=== PATIENT | female | born 1945 | race Caucasian/White ===

== ENCOUNTER 2023-12-28 22:53 | Inpatient (IN) | payer OTHER, SELFPAY ==
[2023-12-28 16:45] VITALS: BP 156/96
[2023-12-28 17:37] VITALS: BP 153/84
[2023-12-28 18:00] VITALS: BP 100/65
[2023-12-28 18:02] LABS: % Basophils 0.5 % (0-2); % Eosinophils 2.7 % (0-6); % Immature Granulocytes 0.4 % (0-0.5); % Lymphocytes 15.3 % (20.5-51.1); % Monocytes 10.4 % (1.7-9.3); % Neutrophils 70.7 % (42.2-75.2); Absolute Basophils 0.1 10^3/uL (0-0.2); Absolute Eosinophils 0.3 10^3/uL (0-0.7); Absolute Lymphocytes 1.5 10^3/uL (1.2-3.4); Hematocrit 43.6 % (37.0-47.0); Hemoglobin 15.4 g/dL (12.0-16.0); Mean Corp Hgb Conc. 35.3 g/dL (33.0-37.0); Mean Corpuscular Hgb 33.6 pg (27.0-31.0); Mean Platelet Volume 9.4 fL (7.4-10.4); Nucleated Red Blood Cells % 0 %; Platelet Count 236 10^3/uL (130-400); Red Blood Cell Count 4.59 10^6/uL (4.20-5.40); White Blood Cell Count 9.8 10^3/uL (4.8-10.8)
[2023-12-28 18:04] LABS: ALT (SGPT) 24 U/L (0-35); AST (SGOT) 33 U/L (14-36); Albumin 4.4 g/dl (3.5-5.0); Alkaline Phosphatase 71 U/L (38-126); Blood Urea Nitrogen 17 mg/dl (7-17); Calcium 9.3 mg/dl (8.4-10.2); Carbon Dioxide 29 mmol/L (22-30); Chloride 98 mmol/L (98-107); Glucose 101 mg/dl (70-99); Potassium 3.5 mmol/L (3.5-5.1); Sodium 139 mmol/L (135-145); Total Bilirubin 1.5 mg/dl (0.2-1.3); Total Protein 7.3 g/dl (6.3-8.2); eGFR > 60.00
[2023-12-28 18:07] VITALS: BMI 27.8
[2023-12-28 18:13] LABS: Troponin I < 0.012 ng/ml
--- NOTE | 2023-12-28 18:20 | ED.GENMED ---
History of Present Illness
General
Chief Complaint: Chest Pain
Time Seen by Provider: 12/28/23 17:36
History of Present Illness
History of Present Illness:
78-year-old female presents the emergency department for evaluation of epigastric/lower chest pain that began this morning. Pain was present when she woke up from sleep. Is now radiating to the thoracic back. She notes that it is mildly pleuritic
but there is no worsening with exertion or movement. No fever, chills, sweats, nausea, or vomiting. Denies history of alcohol or NSAID use. Prior history of cholecystectomy
Review of Systems
Review of Systems
Allergies reviewed?: Yes
All Other Systems: ROS reviewed and negative except as documented in HPI and ROS
Phy Exam
Physical Exam
Physical Exam:
GEN: Well appearing, NAD, WDWN
Eyes: PERRLA, EOMs intact, no scleral icterus
HENT: NCAT, oral mucosa moist, no JVD, no cervical adenopathy.
Lungs: CTAB, no wheezes, rales, rhonchi, normal chest wall excursion
Cardiac: RRR, no M/R/G, no peripheral edema. Radial pulses 2+ bilat
Abdomen: Soft, diffuse epigastric and upper abdominal tenderness with no focality, negative Cruz sign
Neuro: AO x 3
MSK: No gross deformity or ecchymosis. No edema. No digital clubbing
Skin: No rashes, petechiae. Normal color, no pallor or jaundice.
Psych: Calm, cooperative, proper hygiene
Scores
Heart Score for Chest Pain Patients
STEMI patient?: Not applicable
Course
Orders/Labs/Results
Orders:
Orders
12/28/23 16:41
Electrocardiogram (*1) Urgent
Reason for Study: Chest Pain
12/28/23 17:39
Electrocardiogram (*1) Urgent
Reason for Study: Chest Pain
Cardiac Monitoring- Treatment ONCE
EKG- Treatment ONCE
IV Insert/Care/Rem.- Treatment PRN
O2 Therapy [RESP] Urgent
Titrate/Wean O2 to maintain O2 sat greater than (%): 90
Special Instructions: Maintain sats >/=90%
Pulse Ox/spot Check [RESP] Urgent
Quantity: 1
Special Instructions: ON ROOM AIR
12/28/23 17:40
Complete Blood Count/With Diff Urgent
Comprehensive Metabolic Panel Urgent
Lipase Urgent
Comment: ADD ON
Troponin I Urgent
12/28/23 18:25
Add On- LAB Urgent
Tests Added?: lipase
12/28/23 19:39
CT Abd/Pel (IV only)-DH only Urgent
Comment:
Reason For Exam: pancreatitis
12/28/23 21:31
Lactated Ringers [Lr] 1,000 ml IV BOLUS
12/28/23 22:21
Admit/Transfer Patient As Directed
Co-Sign Provider:
Level of Care: Inpatient admission
Assign to:: Telemetry
Physician / Group: Maverick
Diagnosis: Acute Pancreatitis
Reason for Telemetry: Arrhythmia
Date to Stop Telemetry: 12/31/23
Time to Stop Telemetry: 11:00
Reason for Hospitalization: Acute Pancreatitis
Expected length of stay greater than two midnights?: Yes
ELOS- Estimated Length of Stay in days: 3
I certify the patient meets the requirements for IP care: Yes
12/28/23 22:26
PRN Pain Medication Management As Directed
May give lesser potent ordered pain med per pt: Yes
preference::
Protocol:: Medication orders for pain may be administered in a
manner that supports deferring to patient preference
when the pt is:
- Requesting an ordered lesser potent pain medication.
Least to most potent pain medications are defined
as: acetaminophen < NSAID < tramadol < opioids
(morphine, oxycodone, hydromorphone).
- Requesting a lesser dose of the same medication IF
ORDERED.
- Requesting a less intrusive route of administration
if both routes are prescribed by the provider (PO <
IV).
12/28/23 22:29
Code Status As Directed
Resuscitation Status: Full Code
12/31/23 11:00
DC Protocol for Telemetry ONCE
Abnormal Lab Results
12/28/23
17:40
MCH 33.6 H pg
(27.0-31.0)
Absolute Neuts (auto) 7.0 H 10^3/uL
(1.4-6.5)
Absolute Monos (auto) 1.0 H 10^3/uL
(0.1-0.6)
Lymphocytes % 15.3 L %
(20.5-51.1)
Monocytes % 10.4 H %
(1.7-9.3)
Glucose 101 H mg/dl
(70-99)
Total Bilirubin 1.5 H mg/dl
(0.2-1.3)
Lipase > 4000 H* U/L
(23-300)
12/28/23 17:40
12/28/23 17:40
Vital Signs
Initial and Last Documented VS:
Initial Vital Signs
Temp Pulse Resp BP Pulse Ox
98.8 F 84 18 156/96 98
12/28/23 16:45 12/28/23 16:45 12/28/23 16:45 12/28/23 16:45 12/28/23 16:45
Last Documented Vital Signs
Temp Pulse Resp BP Pulse Ox
98.8 F 71 13 100/65 94
12/28/23 16:45 12/28/23 20:00 12/28/23 20:00 12/28/23 18:00 12/28/23 20:00
MDM/Problems Addressed
MDM/Problems Addressed:
Labs reveal acute pancreatitis, cardiac markers reassuring. Will admit for acute pancreatitis
*Critical Care Note
Total Time (30-74mins, 75-104mins- exclusive of procedures): Not Applicable
ED Attending Note
-
Portions of this chart may have been created with voice recognition software.� Occasional wrong word or��sound alike� substitutions may have occurred due to the inherent limitations of voice recognition software.
Discharge Plan
Departure
Patient Disposition: Admit
Date of Disposition: 12/28/23
Time of Disposition: 21:31
Presentation/result/management discussed w/ accepting MD/DO: Hospitalist
Discharge Problem:
Acute pancreatitis
Interventions
Interventions:
*Risk Screen - Suicide Last Done: 12/28/23 16:45
*General Assessment Last Done: 12/28/23 16:45
*Neglect/Abuse Screening Last Done: 12/28/23 16:45
ED- Fall Risk Assessment Last Done: 12/28/23 18:07
*ED COVID-19 Vaccine History Last Done: 12/28/23 16:45
ED- Cardiac Assessment Last Done: 12/28/23 18:07
[2023-12-28 19:28] LABS: Lipase > 4000 U/L (23-300)
[2023-12-28] MEDS: LR 1000 IV (21:45)
--- NOTE | 2023-12-28 22:32 | HPS.HSE ---
Family Physician
-
Family Physician: Peter Fields
Chief Complaint
-
Abd Pain
History of Present Illness
Patient is a 78y F with PMH significant for rheumatoid arthritis, DM-II and hypothyroidism who presents to ED complaining of abdominal pain. Patient states that her symptoms started last PM with epigastric abdominal pain. She woke this AM with
continued discomfort that then progressed to include mid-back pain. She had nausea but no emesis. No fevers / chills. No chest pain, dyspnea, cough. No loose stools or urinary complaints.
Patient denies any prior history of similar symptoms.
She is currently taking Ozempic which she has been taking for the past 6 months or so. No new medications.
She does not drink alcohol. She is s/p remote cholecystectomy.
Medical History
Past Medical History
Past Medical History: Reports Other
Additional Past Medical History:
Rheumatoid Arthritis
DM-II
Hypothyroidism
Venous Insufficiency
Past Surgical History: Reports Other
Additional Past Surgical History:
Cholecystectomy
Herniorrhaphy
Right LEIGHA
Social History
Tobacco: Former Smoker (Quit smoking 10 years ago.)
Alcohol: None
Drug: None
Family History
Family History: Not pertinent
Allergies / Home Medications
Allergies reflects when Allergies were last updated in [facility].
Home Medications with original date entered in [facility]
Allergy/Medication List:
Allergies
Allergy/AdvReac Type Severity Reaction Status Date / Time
Sulfa (Sulfonamide Allergy Unknown Verified 12/28/23 16:49
Antibiotics)
Home Medications
acetaminophen 650 mg tablet,extended release (Tylenol Arthritis Pain) 650 mg PO [id number] PRN mild pain 12/28/23
biotin 10,000 mcg chewable tablet (Hair, Skin and Nails (biotin)) 10,000 mcg PO QPM 12/28/23
cholecalciferol (vitamin D3) 25 mcg (1,000 unit) tablet (Vitamin D3) 25 mcg PO QPM 12/28/23
folic acid 1 mg tablet 1 mg PO DAILY 12/28/23
furosemide 40 mg tablet 40 mg PO DAILY 12/28/23
hydrocodone 7.5 mg-acetaminophen 300 mg tablet 1 tab PO Q6HPRN PRN severe pain 12/28/23
hydroxychloroquine 200 mg tablet 200 mg PO QPM 12/28/23
levothyroxine 112 mcg tablet 112 mcg PO DAILY 12/28/23
magnesium hydroxide 600 mg chewable tablet (Dulcolax (magnesium hydroxide)) 1,800 mg PO DAILYPRN PRN constipation 12/28/23
magnesium oxide 400 mg PO QPM 12/28/23
methotrexate sodium 2.5 mg tablet 12.5 mg PO SALDANA 12/28/23
prednisone 5 mg tablet 5 mg PO QPM 12/28/23
semaglutide 1 mg/dose (4 mg/3 mL) subcutaneous pen injector (Ozempic) 1 mg SC TU 12/28/23
tocilizumab 162 mg/0.9 mL subcutaneous syringe (Actemra) 162 mg SC FR 12/28/23
turmeric 400 mg capsule 400 mg PO QPM 12/28/23
Review of Systems
-
History Source: Patient
A 12 point ROS was completed and negative except as noted: Yes
Constitutional: Denies Fever or Chills
Respiratory: Denies Cough or Trouble Breathing
Cardiac: Denies Chest Pain or Palpitations
Abdomen/GI: Reports Abdominal Pain and Nausea; Denies Vomiting, Diarrhea, Constipated, Bloody Stools or Black Stools
: Denies Dysuria, Frequency or Flank Pain
Musculoskeletal: Reports Other (Back Pain); Denies Joint Pain
Neurological: Denies Dizzy or Headache
Psych: Denies Depression or Anxiety
Physical Exam
Vital Signs
Vital Signs
Temp Pulse Resp BP Pulse Ox
98.8 F 71 13 100/65 94
12/28/23 16:45 12/28/23 20:00 12/28/23 20:00 12/28/23 18:00 12/28/23 20:00
Physical Exam
General: Other (78y F in no acute distress.)
HEENT: Moist mucous membranes and PERRLA
Respiratory: Clear; No Wheezes, Rales or Rhonchi
Cardiac: S1/S2 and Regular Rhythm; No Murmur
GI: Soft, Non Distended, Normal Bowel Sounds and Other (Pos epigastric and LUQ tenderness without rebound.)
Musculoskeletal: No Clubbing, No Cyanosis and Other (Chronic venous stasis skin changes with trace - 1+ pitting edema.)
Neuro: AO x 3
Laboratory Results
-
12/28/23 17:40
12/28/23 17:40
Laboratory Results
Total Bilirubin 1.5 mg/dl (0.2-1.3) H 12/28/23 17:40
AST 33 U/L (14-36) 12/28/23 17:40
ALT 24 U/L (0-35) 12/28/23 17:40
Alkaline Phosphatase 71 U/L (38-126) 12/28/23 17:40
Troponin I < 0.012 ng/ml 12/28/23 17:40
Lipase Cancelled 12/28/23 17:56
Impression/Plan
-
A/P: Patient is a 78y F with PMH significant for rheumatoid arthritis, DM-II and hypothyroidism who presents to ED complaining of abdominal pain.
Acute Pancreatitis
- Admit for further evaluation and treatment.
- Likely that pancreatitis is secondary to semaglutide given absence of other etiologies.
- NPO, IVFs, pain control / supportive care.
- GI evaluation for additional recommendations.
- Hold further semaglutide for now.
- Follow for clinical improvement.
Rheumatoid Arthritis
- Stable. No acute joint pains, etc.
- Continue current med regimen including weekly MTX, prednisone, etc.
DM-II
- Stable. Hold semaglutide as noted above.
- Follow glucose and cover with SSI as needed.
- Update A1C.
Hypothyroidism
- Stable. Continue T4 supplementation.
DVT Prophylaxis: Lovenox
Code Status: Full
[2023-12-29] VITALS (8 sets, daily range): BP systolic 121–156; BP diastolic 60–84; BMI 30.1
[2023-12-29] MEDS: DILAUDID 0.5 MG IV (01:39)
[2023-12-29] MEDS: LR 1000 IV ×2 (01:44→09:18)
--- NOTE | 2023-12-29 03:00 | PTCARENOTE ---
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
after assessment.
[2023-12-29] MEDS: SYNTHROID 112 MCG PO (05:40)
[2023-12-29 07:11] LABS: Hematocrit 38.4 % (37.0-47.0); Hemoglobin 13.7 g/dL (12.0-16.0); Mean Corp Hgb Conc. 35.7 g/dL (33.0-37.0); Mean Corpuscular Hgb 34.1 pg (27.0-31.0); Mean Corpuscular Volume 95.5 fL (81.0-99.0); Mean Platelet Volume 9.3 fL (7.4-10.4); Platelet Count 195 10^3/uL (130-400); Red Blood Cell Count 4.02 10^6/uL (4.20-5.40); White Blood Cell Count 6.9 10^3/uL (4.8-10.8)
[2023-12-29 07:49] LABS: ALT (SGPT) 19 U/L (0-35); AST (SGOT) 25 U/L (14-36); Albumin 3.6 g/dl (3.5-5.0); Alkaline Phosphatase 73 U/L (38-126); Blood Urea Nitrogen 12 mg/dl (7-17); Calcium 8.7 mg/dl (8.4-10.2); Carbon Dioxide 29 mmol/L (22-30); Chloride 102 mmol/L (98-107); Direct Bilirubin 0.1 mg/dl (0.0-0.4); Estimated Creatinine Clearance 66 ml/min; Glucose 96 mg/dl (70-99); Potassium 3.9 mmol/L (3.5-5.1); Sodium 140 mmol/L (135-145); Total Bilirubin 1.3 mg/dl (0.2-1.3); Total Protein 6.1 g/dl (6.3-8.2); eGFR > 60.00
--- NOTE | 2023-12-29 08:12 | CON.GI ---
Consultation
-
Date/Time Consultation Requested: 01:08 am
Date/Time Consultation Performed: 12/29/23 8.35 am
Requesting Provider: Jarrell Temple DO
Performing Provider: Thais Chand MD
Reason for Consultation: Pancreatitis
Medical History
Chief Complaint / HPI
Chief Complaint: Epigastric pain radiating back
History of Present Illness:
The patient is a 78 year-old female with a PMH of rheumatoid arthritis, DM-II and hypothyroidism who presented ER complaining from sudden onset epigastric pain. Reported her pain started the day before her presentation to ER and she rated her pain
11/22. She described a radiating pain on her epigastric area and and on her back. She denied a hx of pancreatitis or similar symptoms before. She endorsed some nausea at that time but denied associated vomiting, dysphagia, heartburn, diarrhea or
constipation, fever, chills, SOB. Her last BM was yesterday in normal form and color. She endorsed hx of right kidney stone but denies any dysuria, hematuria or urine color change. Denies alcohol taking more than 20 years, denies NSAI taking. She
had her cholecystectomy at the age of 37 without complication. Reported having colonoscopy and endoscopy 2 years ago at another hospital and reported the findings were not significant and was not called for follow up.
Past Medical History
Past Medical History: Hypothyroidism, NIDDM and Other (Rheumatoid arthritis )
Past Surgical History: Cholecystectomy (37 years old ) and Other (, Herniorrhaphy, Right LEIGHA in 2023 )
Social History
Tobacco: Smoker (quitted 10 years ago )
Alcohol: None (stopped more than 20 years ago )
Drug: None
Family History
Family History: Reviewed & Not Pertinent
Allergies / Home Medications
Allergy/AdvReac Type Severity Reaction Status Date / Time
Sulfa (Sulfonamide Allergy Unknown Verified 12/28/23 16:49
Antibiotics)
�Medication �Instructions �Recorded
acetaminophen 650 mg 650 mg PO [id number] PRN mild pain 12/28/23
tablet,extended release (Tylenol
Arthritis Pain)
biotin 10,000 mcg chewable tablet 10,000 mcg PO QPM 12/28/23
(Hair, Skin and Nails (biotin))
cholecalciferol (vitamin D3) 25 25 mcg PO QPM 12/28/23
mcg (1,000 unit) tablet (Vitamin
D3)
folic acid 1 mg tablet 1 mg PO DAILY 12/28/23
furosemide 40 mg tablet 40 mg PO DAILY 12/28/23
hydrocodone 7.5 mg-acetaminophen 1 tab PO Q6HPRN PRN severe pain 12/28/23
300 mg tablet
hydroxychloroquine 200 mg tablet 200 mg PO QPM 12/28/23
levothyroxine 112 mcg tablet 112 mcg PO DAILY 12/28/23
magnesium hydroxide 600 mg 1,800 mg PO DAILYPRN PRN 12/28/23
chewable tablet (Dulcolax constipation
(magnesium hydroxide))
magnesium oxide 400 mg PO QPM 12/28/23
methotrexate sodium 2.5 mg tablet 12.5 mg PO SALDANA 12/28/23
prednisone 5 mg tablet 5 mg PO QPM 12/28/23
semaglutide 1 mg/dose (4 mg/3 mL) 1 mg SC TU 12/28/23
subcutaneous pen injector (Ozempic)
tocilizumab 162 mg/0.9 mL 162 mg SC FR 12/28/23
subcutaneous syringe (Actemra)
turmeric 400 mg capsule 400 mg PO QPM 12/28/23
Review of Systems
-
History Source: Patient
EENT: Reports No Symptoms
Respiratory: Reports No Symptoms
Cardiac: Reports No Symptoms
Abdomen/GI: Reports Pain (Epigastric abdominal pain )
: Reports No Symptoms
Musculoskeletal: Reports Other (Arthritic changes due RA )
Skin: Reports Other (Discoloration on the legs (chronic) )
Neurological: Reports No Symptoms
Vital Signs
Temp Pulse Resp BP Pulse Ox
97.6 F 66 18 121/60 95
12/29/23 03:20 12/29/23 03:20 12/29/23 03:20 12/29/23 03:20 12/29/23 03:20
Physical Exam
Exam
General: No Apparent Distress and Pain
HEENT: Normocephalic and Anicteric
Respiratory: Clear
Cardiac: S1/S2 and Regular Rhythm
GI: Soft and Tender (mild tenderness on epigastric area to palpation )
Musculoskeletal: No Clubbing, No Cyanosis, No Edema and Other (Arthritic changes on foor and hands )
Skin: Warm
Neuro: Awake, Alert, Oriented and AO x 3
Results
WBC 6.9 10^3/uL (4.8-10.8) 12/29/23 06:47
Hgb 13.7 g/dL (12.0-16.0) 12/29/23 06:47
Hct 38.4 % (37.0-47.0) 12/29/23 06:47
MCV 95.5 fL (81.0-99.0) 12/29/23 06:47
Plt Count 195 10^3/uL (130-400) 12/29/23 06:47
Absolute Neuts (auto) 7.0 10^3/uL (1.4-6.5) H 12/28/23 17:40
Sodium 140 mmol/L (135-145) 12/29/23 06:47
Potassium 3.9 mmol/L (3.5-5.1) 12/29/23 06:47
Chloride 102 mmol/L (98-107) 12/29/23 06:47
Carbon Dioxide 29 mmol/L (22-30) 12/29/23 06:47
BUN 12 mg/dl (7-17) 12/29/23 06:47
Creatinine 0.6 mg/dL (0.6-1.0) 12/29/23 06:47
Calcium 8.7 mg/dl (8.4-10.2) 12/29/23 06:47
Total Bilirubin 1.3 mg/dl (0.2-1.3) 12/29/23 06:47
AST 25 U/L (14-36) 12/29/23 06:47
ALT 19 U/L (0-35) 12/29/23 06:47
Alkaline Phosphatase 73 U/L (38-126) 12/29/23 06:47
Lipase Cancelled 12/28/23 17:56
Diagnostic Image Results:
12/28/[address]
IMPRESSION:
1. ACUTE INTERSTITIAL EDEMATOUS PANCREATITIS.
2. No CT evidence for pancreatic necrosis or acute peripancreatic fluid collection.
3. Mild biliary dilatation.
4. Previous cholecystectomy.
5. Small hiatal hernia.
6. Very severe diverticulosis in the sigmoid colon.
7. Severe calcific atherosclerotic plaque in the abdominal aorta and common iliac arteries.
8. Small left paramidline anterior abdominal wall hernia.
9. Severe discogenic degenerative disease and facet joint arthrosis in the lumbar spine.
Prior GI Procedures: Per patient report, she had both colonoscopy and endoscopy at another hospital 2 years ago and she did not remember the name of the hospital or the name of the GI physician. Patient reported her results were not significant and
she was not scheduled for follow up or for another procedure.
Assessment / Plan
-
Impression : The patient is a 78 year-old female with a PMH of rheumatoid arthritis, DM-II and hypothyroidism who presented ER complaining from sudden onset epigastric pain. Reported her pain started the day before her presentation to ER and she
rated her pain 10/10. She described a radiating pain on her epigastric area and and on her back. She was obtained abdominal CT which showed: 'acute interstitial edematous pancreatitis'. She denied a hx of pancreatitis. She endorsed some nausea at
that time but denied associated vomiting, dysphagia, heartburn, diarrhea or constipation, fever, chills, SOB. Denies alcohol taking more than 20 years, denies NSAI taking. She had her cholecystectomy at the age of 37 without complication. Her all
current home medications were reviewed together with the patient and she was recently started on Semaglutide about 6 months ago. She has been on other medications at least for more than 5 years and did not have any similar symptoms before.
Assessment/Plan:
#Acute Pancreatitis possibly drug induced
-Abd CT: moderate amount of pancreatic edema and mild diffuse peripancreatic edema consistent with acute interstitial edematous pancreatitis. No evidence for pancreatic necrosis or acute peripancreatic fluid collection
- Per literature rvw: Overall, the incidence of pancreatitis is low with GLP-1 receptor agonist in randomized trials (16 cases among 14,562 patients)-But this is the only new medication she was started. Furosemide can cause also drug induced
pancreatitis and needs to be cautious to continue
-Stop Ozempic
-Hold on Furosemide
-Lactate Ringer suggested over normal saline
-Lipase > 4000
-TG 141, Ca 8.7, No Alcohol use
-Her pain resolved mostly
-Diet: ADAT can be started regarding patient`s comfort and pain level
-Repeat Abd CT after one month to rule out pancreas cancer
#Mild biliary dilatation along cholecystectomy
-CT: There is mild intrahepatic and extrahepatic biliary dilatation. There is no pancreatic ductal dilatation.
- hx of cholecystectomy at 37 yo
-No evidence for choledocholithiasis or Cholangitis
-AST 25, ALT 19, TB 1.3
-Asymptomatic bile duct dilatation of up to 10 mm can be considered as normal range in patients after cholecystectomy
-
-
Thank you for consultation and allowing me to participate in the patient's care. Please call the science liaison GI physician during the after hours with any questions or concerns.
--- NOTE | 2023-12-29 09:08 | W.PN.HOSP.TC ---
Today's Communication/Plan
-
Clear liquid diet, advance as tolerated
Check triglycerides
GI consult
Assessment / Plan
Assessment / Plan
Gen-AAOx3, NAD
HEENT-NC, AT, anicteric, clear oral mm
Neck-supple
CV-reg, no M, +S1/S2
Lungs-clear B/L
Abd-soft, nondistended, mild epigastric tenderness
Ext-no edema
Musculoskeletal-no cyanosis, clubbing
Skin-warm and dry
Neuro-grossly non-focal
Psych-calm, cooperative
Acute pancreatitis -possibly due to semaglutide. First episode of pancreatitis. Discontinue further use. Discussed with patient. GI consulted. Calcium is normal. Check triglycerides. Start clears, advance as tolerated to low-fat.
CT scan shows acute interstitial edematous pancreatitis without fluid collection. Mild biliary dilation noted. Previous cholecystectomy noted.
Tocilizumab is a rare cause of pancreatitis as well.
DM2 without hyperglycemia -prior to admission was on semaglutide, recommend stopping in light of pancreatitis. Follow-up with PCP.
Rheumatoid arthritis -stable.
Hypothyroidism -continue levothyroxine.
Chronic venous stasis dermatitis lower extremities
Obesity due to excess calories
Full code
Anticipated Discharge: Within 24 hours
Subjective/Interval History
-
Date of Service: December 29, 2023
Patient seen and examined. Sitting up in bed, overall feeling better. Denies nausea. Pain improved.
Objective Data
-
Labs:
Laboratory Results
12/29/23
06:47
WBC 6.9
Hgb 13.7
Hct 38.4
Plt Count 195
Sodium 140
Potassium 3.9
Chloride 102
Carbon Dioxide 29
BUN 12
Creatinine 0.6
Glucose 96
Calcium 8.7
Total Bilirubin 1.3
AST 25
ALT 19
Alkaline Phosphatase 73
Vital Signs:
Vital Signs
Temp Pulse Resp BP Pulse Ox
97.4 F 66 18 123/71 98
12/29/23 08:12 12/29/23 08:12 12/29/23 08:12 12/29/23 08:12 12/29/23 08:12
I&O
12/28/23 12/29/23 12/30/23
06:59 06:59 06:59
Intake Total 600 / 600
Balance 600 / 600
Review of Systems
-
History Source: Patient
All other systems: Reviewed and negative
[2023-12-29] MEDS: NSS (PRESERVATIVE FREE) 10 ML IV (09:18)
[2023-12-29] MEDS: FLUSH (NSS) 1 FLUSH IV (09:18)
[2023-12-29] MEDS: PROTONIX IV 40 MG IV (09:18)
[2023-12-29] MEDS: FOLVITE 1 MG PO (09:18)
[2023-12-29 09:40] LABS: Glucose - Point of Care 103 mg/dl (70-99)
[2023-12-29 10:18] LABS: Triglycerides 141 mg/dl (10-149)
[2023-12-29 11:15] LABS: Glycohemoglobin (HgbA1c) 5.4 % (4.0-5.6)
--- NOTE | 2023-12-29 12:35 | CM ---
Patient seen at bedside, Patient states that she lives alone in a condo on the first floor. No steps to enter. Patient has a walker and a cane at home but does not use them. Patient stated that she drives and is independent of ADL's. Patient PCP is
Dr. Fields and she uses the [facility] in [place]. Patient states she works 3 days a week but does not anticipate any additional supports. CM will continue to follow for discharge planning needs.
Plan; home with no needs vs home with VN
[2023-12-29 13:01] LABS: Glucose - Point of Care 77 mg/dl (70-99)
--- NOTE | 2023-12-29 16:43 | PTCARENOTE ---
Pt AAO x3, MCGREGOR well, ambulatory in room/to BR; radha well, no c/o weakness/dizziness. VSS. Telemetry:NSR. On room air- pulse ox 97%, no SOB noted. Abd large, soft; radha clear liquid diet;pt to start full liquid diet for dinner. Voids in BR without
difficulty. resting in bed at present, no c/o. Will continue to monitor.
[2023-12-29 17:00] LABS: Glucose - Point of Care 78 mg/dl (70-99)
[2023-12-29] MEDS: LOVENOX 40 MG SC (17:24)
[2023-12-29] MEDS: PLAQUENIL 200 MG PO (17:24)
[2023-12-29] MEDS: DELTASONE 5 MG PO (17:26)
[2023-12-29 21:18] LABS: Glucose - Point of Care 138 mg/dl (70-99)
[2023-12-30] MEDS: SYNTHROID 112 MCG PO (03:21)
[2023-12-30 03:23] VITALS: BP 131/65
[2023-12-30 07:12] LABS: Glucose - Point of Care 115 mg/dl (70-99)
[2023-12-30 07:15] VITALS: BP 144/72
[2023-12-30] MEDS: PROTONIX IV 40 MG IV (08:34)
[2023-12-30] MEDS: FOLVITE 1 MG PO (08:34)
[2023-12-30] MEDS: NSS (PRESERVATIVE FREE) 10 ML IV (08:34)
--- NOTE | 2023-12-30 08:39 | W.PN.GI.CBS2 ---
Addendum entered and electronically signed by Mariam Michelle DO 12/30/23 08:46:
I ordered the CT from [facility] but it won't print in the hospital. My office will check for any PA needed. patient will need to call central scheduling [phone] scan to be done in 4wks.
Original Note:
Today's Communication / Plan
-
ultrasound then discharge with 4wk repeat pancreatic imaging
Assessment / Plan
-
Eileen is a 78-year-old female with history of rheumatoid arthritis, diabetes on Ozempic here with her first episode of mild pancreatitis based on abdominal pain, imaging and lipase greater than 4000 her BUN is 12, her total bilirubin on admission
was 1.5 now 1.3 otherwise LFTs are normal. Triglycerides 141, calcium 8.7. She is a non-smoker. No family history of pancreatitis and no family history of pancreatic cancer. She does not drink alcohol. She started Ozempic 6 months ago. Her
symptoms started on Monday and describes it as epigastric radiating into her back. Currently she is feeling well with no nausea or vomiting just some mild belching. She did have a bowel movement today.
Review of CT scan with IV contrast only shows acute interstitial edematous pancreatitis with no evidence of necrosis or fluid collection. Mild biliary ductal dilatation with previous cholecystectomy with no filling defect on CT scan.
Plan: Ultrasound this morning since CT scan is not sensitive for bile duct stones. However low yield in the setting of her liver enzymes being in a nonobstructive pattern, they are normal.
Low-fat diet.
DVT prophylaxis
Patient can no longer take GLP-1 medications as that may be the etiology. She does take Lasix which could potentially be a culprit as well as Actemra. Even if the GLP-1 medication was not the etiology of her pancreatitis she can no longer have it
since she has had an episode of pancreatitis.
In 4 weeks she will need to repeat pancreatic imaging when her pancreas is not inflamed to make sure she does not have a pancreatic malignancy. She is not willing to do an MRI because of claustrophobia we can do a CT pancreatic protocol
Currently she is feeling well. She is very comfortable.
Likely discharge today
Subjective
Subjective
Date of Service: December 30, 2023
patient without complaints. +BM, no n/v/or pain. tolerated dinner without issue
Objective
Data Reviewed
Laboratory Data:
Laboratory Results
12/29/23 06:47
12/29/23 06:47
Laboratory Results
Total Bilirubin 1.3 mg/dl (0.2-1.3) 12/29/23 06:47
AST 25 U/L (14-36) 12/29/23 06:47
ALT 19 U/L (0-35) 12/29/23 06:47
Alkaline Phosphatase 73 U/L (38-126) 12/29/23 06:47
Lipase Cancelled 12/28/23 17:56
Vital Signs and I&O:
Vital Signs
Temp Pulse Resp BP Pulse Ox
98.4 F 69 18 131/65 96
12/30/23 03:23 12/30/23 03:23 12/30/23 03:23 12/30/23 03:23 12/30/23 03:23
I&O
12/29/23 12/30/23 12/31/23
06:59 06:59 06:59
Intake Total 600 / 600 2780 / 2780
Balance 600 / 600 2780 / 2780
Physical Exam
Physical Exam
HEENT: Anicteric
Cardiology: Normal Sinus Rhythm
GI: Soft and Tender (mild tenderness in the epigastric area)
Extremities: No Edema
Neuro: Non Focal
[2023-12-30 09:00] VITALS: BP 144/72
--- NOTE | 2023-12-30 10:39 | W.PN.HOSP.TC ---
Today's Communication/Plan
-
Discharge
Assessment / Plan
Assessment / Plan
Gen-AAOx3, NAD
HEENT-NC, AT, anicteric, clear oral mm
Neck-supple
CV-reg, no M, +S1/S2
Lungs-clear B/L
Abd-soft, nondistended, mild epigastric tenderness
Ext-no edema
Musculoskeletal-no cyanosis, clubbing
Skin-warm and dry
Neuro-grossly non-focal
Psych-calm, cooperative
Acute pancreatitis -possibly due to semaglutide. First episode of pancreatitis. Discontinue further use. Discussed with patient. GI consulted. Calcium and triglyceride levels normal. Tolerating low-fat diet.
CT scan shows acute interstitial edematous pancreatitis without fluid collection. Mild biliary dilation noted. Previous cholecystectomy noted.
Tocilizumab is a rare cause of pancreatitis as well.
Abdominal ultrasound does not show choledocholithiasis. Does show pancreatic hypodensity, measuring 8 x 8 x 7 mm along the pancreatic body.
GI recommends CT pancreas protocol in 4 weeks to follow-up on pancreatic hypodensity. Patient is too claustrophobic for MRI.
DM2 without hyperglycemia -prior to admission was on semaglutide, recommend stopping in light of pancreatitis. Follow-up with PCP. Hemoglobin A1c 5.4%. Probably does not need any medications for diabetes. Recommend diet and exercise. She did
lose 25 pounds which likely is helping, hopefully she can maintain that.
Rheumatoid arthritis -stable.
Hypothyroidism -continue levothyroxine.
Chronic venous stasis dermatitis lower extremities
Obesity due to excess calories
Full code
Dispo - medically stable for discharge today. Follow-up with PCP and GI.
35 minutes spent in discharge process.
Anticipated Discharge: Today
Subjective/Interval History
-
Date of Service: December 30, 2023
Patient seen and examined. Feeling fine. No complaints.
Objective Data
-
Vital Signs:
Vital Signs
Temp Pulse Resp BP Pulse Ox
98.3 F 71 16 144/72 98
12/30/23 07:15 12/30/23 07:15 12/30/23 07:15 12/30/23 07:15 12/30/23 07:15
I&O
12/29/23 12/30/23 12/31/23
06:59 06:59 06:59
Intake Total 600 / 600 2780 / 2780
Balance 600 / 600 2780 / 2780
Review of Systems
-
History Source: Patient
All other systems: Reviewed and negative
--- NOTE | 2023-12-30 10:45 | W.DS.TRANS ---
DC Summary - [employer]
-
Discharge Instructions:
Discharge Diagnosis/Procedures Acute pancreatitis
Diet Low Fat
Activity As tolerated
Driving Restrictions As prior to admission
Bathing Restrictions None
Instructions:
Stand-Alone Forms:
Changes to Home Medications: Yes
Discharge Medications:
DC Medications w/original date entered in [facility]
acetaminophen 650 mg tablet,extended release (Tylenol Arthritis Pain) 650 mg PO [id number] PRN mild pain 12/28/23
biotin 10,000 mcg chewable tablet (Hair, Skin and Nails (biotin)) 10,000 mcg PO QPM 12/28/23
cholecalciferol (vitamin D3) 25 mcg (1,000 unit) tablet (Vitamin D3) 25 mcg PO QPM 12/28/23
folic acid 1 mg tablet 1 mg PO DAILY 12/28/23
furosemide 40 mg tablet 40 mg PO DAILY 12/28/23
hydrocodone 7.5 mg-acetaminophen 300 mg tablet 1 tab PO Q6HPRN PRN severe pain 12/28/23
hydroxychloroquine 200 mg tablet 200 mg PO QPM 12/28/23
levothyroxine 112 mcg tablet 112 mcg PO DAILY 12/28/23
magnesium hydroxide 600 mg chewable tablet (Dulcolax (magnesium hydroxide)) 1,800 mg PO DAILYPRN PRN constipation 12/28/23
magnesium oxide 400 mg PO QPM 12/28/23
methotrexate sodium 2.5 mg tablet 12.5 mg PO SALDANA 12/28/23
prednisone 5 mg tablet 5 mg PO QPM 12/28/23
tocilizumab 162 mg/0.9 mL subcutaneous syringe (Actemra) 162 mg SC FR 12/28/23
turmeric 400 mg capsule 400 mg PO QPM 12/28/23
Home Medication Changes
Stop Ozempic
Pending Results: No
[2023-12-30 11:00] VITALS: BP 129/65
--- NOTE | 2023-12-30 11:12 | CM ---
CM reviewed chart, patient for discharge today. Patient seen bedside, reports no needs upon discharge. IMM reviewed, signed, placed in chart, patient provided with copy. Patient reports she will drive self home. CM will continue to follow for all
discharge planning needs.
Plan; home no needs.
== END 2023-12-30 13:05 | disposition home or self-care (01) | DRG 440 ==
LOC: 4 EAST ACU 22:53
PROVIDERS: Physician Assistant; ADMITTING PHYSICIAN Hospitalist; ATTENDING PHYSICIAN Hospitalist; CONSULT PHYSICIAN Internal Medicine; EMERGENCY PHYSICIAN Student in an Organized Health Care Education/Training Program; FAMILY PHYSICIAN Family Medicine
DX: K85.30 Drug induced acute pancreatitis without necrosis or infection (principal); M06.9 Rheumatoid arthritis, unspecified; E11.9 Type 2 diabetes mellitus without complications; T50.995A Adverse effect of other drugs, medicaments and biological substances, initial encounter; Y92.89 Other specified places as the place of occurrence of the external cause; E03.9 Hypothyroidism, unspecified; K44.9 Diaphragmatic hernia without obstruction or gangrene; K57.30 Diverticulosis of large intestine without perforation or abscess without bleeding; I70.0 Atherosclerosis of aorta; K43.9 Ventral hernia without obstruction or gangrene; M47.819 Spondylosis without myelopathy or radiculopathy, site unspecified; E66.09 Other obesity due to excess calories; F40.240 Claustrophobia; I87.8 Other specified disorders of veins; I87.2 Venous insufficiency (chronic) (peripheral); Z60.2 Problems related to living alone; Z87.891 Personal history of nicotine dependence; Z88.2 Allergy status to sulfonamides; Z79.890 Hormone replacement therapy; Z79.891 Long term (current) use of opiate analgesic; Z79.52 Long term (current) use of systemic steroids; Z79.85 Long-term (current) use of injectable non-insulin antidiabetic drugs; Z90.49 Acquired absence of other specified parts of digestive tract; Z87.442 Personal history of urinary calculi; Z68.30 Body mass index [BMI] 30.0-30.9, adult
CPT/HCPCS: 74177; 76700; 80053; 82248; 82962; 83036; 83690; 84478; 84484; 85025; 85027; 93005; 96360; 99285; Q9967

== ENCOUNTER → 2024-02-01 11:31 | Outpatient (REF) | payer OTHER, SELFPAY | LOC: RAD 11:31 | PROVIDERS: ATTENDING PHYSICIAN Internal Medicine; FAMILY PHYSICIAN Family Medicine | DX: Z87.19 Personal history of other diseases of the digestive system (principal) | CPT/HCPCS: 74170; Q9967 ==